=== PATIENT | male | born 1980 | race Caucasian/White ===

== ENCOUNTER 2018-04-19 04:48 | Emergency (ER) | payer BC ==
[2018-04-19] MEDS ORDERED: MEPERIDINE HCL 50 MG/ML AMP ONE (05:35)
[2018-04-19] MEDS ORDERED: ONDANSETRON 4 MG/2 ML VIAL ONE (05:35)
[2018-04-19] MEDS ORDERED: NA CHLORIDE 0.9% 2,000 ML ONE (05:36)
[2018-04-19 05:39] LABS: Absolute Lymphocytes (CBC) 0.3 K/uL (0.7-4.9); Absolute Monocytes 0.4 K/uL (0.1-1.3); Absolute Neutrophil 16.8 K/uL (1.8-8.0); Basophils % 0.1 % (0-1.3); Eosinophils % 0.1 % (0-4.4); Hematocrit 47.9 % (39.6-49.0); Lymphocytes % 1.8 % (15.3-44.8); MPV 8.1 fL (7.6-11.3); Monocytes % 2.4 % (3.3-12.3); RBC Red Blood Cell Count 5.54 M/uL (4.33-5.43)
[2018-04-19 06:07] LABS: ALT/SGPT 35 U/L (12-78); AST/SGOT 18 U/L (15-37); Albumin 4.6 g/dL (3.4-5.0); Alkaline Phosphatase 65 U/L (45-117); BUN Blood Urea Nitrogen 21 mg/dL (7-18); Bicarbonate 25 mmol/L (21-32); Bilirubin Direct 0.2 mg/dL (0-0.2); Bilirubin Total 0.9 mg/dL (0.2-1.0); Glucose Level 125 mg/dL (74-106); Lipase 182 U/L (73-393); Protein, Total 8.2 g/dL (6.4-8.2); Sodium Level 140 mmol/L (136-145)
[2018-04-19 06:13] LABS: Blood Morphology Comment NOT SEEN (NOT SEEN); Platelet Estimate ADEQ; Toxic Granulation 1+; Urine White Blood Cell Casts OK
--- NOTE | 2018-04-19 09:11 | RAD REPORT ---
EXAM DESCRIPTION: CT - Abdomen Pelvis W Contrast - 04/19/2018 9:03 am CLINICAL HISTORY: Abdominal pain, nausea and vomiting, history of ulcerative colitis and esophagitis COMPARISON: None. TECHNIQUE: Biphasic CT imaging of the abdomen and pelvis was performed following 100 ml non-ionic IV contrast. Oral contrast was given. All CT scans are performed using dose optimization technique as appropriate and may include automated exposure control or mA/KV adjustment according to patient size. Due to technical difficulties, timing of acquisition was not optimal. Exam is still of diagnostic in quality. FINDINGS: No suspicious findings in the lung bases. The liver, spleen, and pancreas show no suspicious findings. Liver is borderline fatty infiltrated. G allbladder and biliary tree show no suspicious findings. Gallstones can be occult. Symmetric renal function is seen with no hydronephrosis or suspicious renal mass. No pyelonephritis o r acute parenchymal process. No bladder abnormalities. No adrenal abnormalities. No dilated bowel loops or bowel wall thickening. Appendix is normal. A few small well under [address] mesenteric lymph nodes seen. No free air, free fluid or inflammatory stranding. No hernia, mass or bulky lymphadenopathy. No suspicious bony findings. IMPRESSION: Contrast enhanced CT abdomen and pelvis showing no significant or suspicious finding. No acute GI process is identifiable. Mild inflammatory changes of the colon limited to the mucosal jiménez rface can be occult on CT imaging.
--- NOTE | 2018-04-19 09:40 | EDPHYS ---
Physician Documentation [facility] Name: Daren Myers Age: 37 yrs Sex: Male : 1980 Arrival Date: 04/19/2018 Time: 04:54 Bed 14 Private MD: ED Physician Pankaj Conn HPI: 04/19 05:17 This 37 yrs old Male presents to ER via Ambulatory with complaints of pkl Vomiting/Diarrhea, Abdominal Pain, Back Pain. 05:17 The patient presents to the emergency department with vomiting, diarrhea. Onset: The pkl symptoms/episode began/occurred just prior to arrival, 8 hour(s) ago. H/O ulcerative colitis. Historical: - Allergies: 04:56 PENICILLINS; jb4 - Home Meds: 04:56 Simponi subcutaneous subcutaneous [Active]; budesonide oral oral [Active]; Vitamin D3 jb4 oral oral [Active]; Zinc Sulfate Oral [Active]; Probiotic oral oral [Active]; - PMHx: 04:56 ulcerative colitis; esophageal esophagitis; spinulosis; jb4 - PSHx: 04:56 coloscopy; endoscopy; right foot; jb4 - Immunization history:: Adult Immunizations unknown, Flu vaccine is not up to date. - Social history:: Smoking status: Patient/guardian denies using tobacco, Patient uses alcohol, on a daily basis. - Ebola Screening: : No symptoms or risks identified at this time. ROS: 05:17 Eyes: Negative for injury, pain, redness, and discharge, ENT: Negative for injury, pkl pain, and discharge, Neck: Negative for injury, pain, and swelling, Cardiovascular: Negative for chest pain, palpitations, and edema, Respiratory: Negative for shortness of breath, cough, wheezing, and pleuritic chest pain. 05:17 Abdomen/GI: Positive for abdominal pain, nausea, vomiting, and diarrhea, of the right upper quadrant, left upper quadrant, right lower quadrant and left lower quadrant. 05:17 Back: Negative for acute changes. 05:17 : Negative for urinary symptoms. 05:17 MS/extremity: Negative for acute changes. 05:17 Skin: Negative for rash. 05:17 Neuro: Negative for altered mental status. Exam: 05:17 Head/Face: Normocephalic, atraumatic. Eyes: Pupils equal round and reactive to light, pkl extra-ocular motions intact. Lids and lashes normal. Conjunctiva and sclera are non-icteric and not injected. Cornea within normal limits. Periorbital areas with no swelling, redness, or edema. ENT: Nares patent. No nasal discharge, no septal abnormalities noted. Tympanic membranes are normal and external auditory canals are clear. Oropharynx with no redness, swelling, or masses, exudates, or evidence of obstruction, uvula midline. Mucous membranes moist. Neck: Trachea midline, no thyromegaly or masses palpated, and no cervical lymphadenopathy. Supple, full range of motion without nuchal rigidity, or vertebral point tenderness. No Meningismus. Chest/axilla: Normal chest wall appearance and motion. Nontender with no deformity. No lesions are appreciated. Cardiovascular: Regular rate and rhythm with a normal S1 and S2. No gallops, murmurs, or rubs. Normal PMI, no JVD. No pulse deficits. Respiratory: Lungs have equal breath sounds bilaterally, clear to auscultation and percussion. No rales, rhonchi or wheezes noted. No increased work of breathing, no retractions or nasal flaring. 05:17 Abdomen/GI: Bowel sounds: active, Palpation: soft, mild abdominal tenderness, in all quadrants. 05:17 Back: Exam negative for acute changes. 05:17 : Exam negative for acute changes. 05:17 Musculoskeletal/extremity: Exam is negative for acute changes. 05:17 Skin: Exam negative for rash. 05:17 Neuro: Orientation: is normal, Mentation: is normal, Cranial nerves: grossly normal, Motor: is normal. Vital Signs: 04:56 BP 132 / 90; Pulse 116; Resp 16; Temp 98.4(O); Pulse Ox 97% on R/A; Weight 90.72 kg jb4 (R); Height 5 ft. 10 in. (177.80 cm); Pain 8/10; 06:00 BP 125 / 83; Pulse 86; Resp 16; Pulse Ox 100% on 2 lpm NC; jb4 07:00 BP 122 / 76; Pulse 96; Resp 17; Pulse Ox 100% on 2 lpm NC; Pain 0/10; rb1 08:00 BP 114 / 78; Pulse 75; Resp 16; Pulse Ox 100% on 2 lpm NC; rb1 09:00 rb1 09:15 BP 128 / 67; Pulse 84; Resp 17; Pulse Ox 100% on R/A; rb1 09:53 BP 120 / 70; Pulse 89; Resp 18; Pulse Ox 100% ; rb1 04:56 Body Mass Index 28.70 (90.72 kg, 177.80 cm) jb4 09:[address] rb1 MDM: 04:57 Patient medically screened. pkl 09:38 Differential diagnosis: Nonspecific abd pain, gastritis, viral gastroenteritis, rn gastroenteritis, colitis. Data reviewed: vital signs, nurses notes, lab test result(s), radiologic studies, CT scan, and as a result, I will discharge patient. Counseling: I had a detailed discussion with the patient and/or guardian regarding: the historical points, exam findings, and any diagnostic results supporting the discharge/admit diagnosis, lab results, radiology results, the need for outpatient follow up, to return to the emergency department if symptoms worsen or persist or if there are any questions or concerns that arise at home. Special discussion: Based on the patient's Hx, exam, and Dx evaluation, there is no indication for emergent surgery or inpatient Tx. It is understood by the patient/guardian that if the Sx's persist or worsen they need to return immediately for re-evaluation. I discussed with the patient/guardian in detail that at this point there is no indication for admission to the hospital. It is understood, however, that if the symptoms persist or worsen the patient needs to return immediately for re-evaluation. 04/19 05:16 Order name: Basic Metabolic Panel; Complete Time: 06:20 pkl 04/19 05:16 Order name: CBC with Diff; Complete Time: 06:20 pkl 04/19 05:16 Order name: Creatinine for Radiology; Complete Time: 06:20 pkl 04/19 05:16 Order name: Hepatic Function; Complete Time: 06:20 pkl 04/19 05:16 Order name: Lipase; Complete Time: 06:20 pkl 04/19 05:16 Order name: IV Saline Lock; Complete Time: 05:45 pkl 04/19 05:16 Order name: Labs collected and sent; Complete Time: 05:45 pkl 04/19 05:45 Order name: CBC Smear Scan; Complete Time: 06:20 EDMS 04/19 06:22 Order name: CT Abd/Pelvis - W/Contrast; Complete Time: 09:18 pkl Administered Medications: 05:28 Drug: Zofran 4 mg Route: IVP; Site: right antecubital; jb4 06:41 Follow up: Response: No adverse reaction; Nausea is decreased jb4 05:30 Drug: Demerol 50 mg Route: IVP; Site: right antecubital; jb4 06:41 Follow up: Response: No adverse reaction; Pain is decreased jb4 05:34 Drug: NS 0.9% 1000 ml Route: IV; Rate: 1000 ml; Site: right antecubital; jb4 06:42 Follow up: Response: No adverse reaction; IV Status: Completed infusion jb4 06:41 Drug: NS 0.9% 1000 ml Route: IV; Rate: 125 ml/hr; Site: right antecubital; jb4 09:40 Follow up: IV Status: Completed infusion; IV Intake: 375ml rb1 Disposition: 04/19/18 09:39 Discharged to Home. Impression: Vomiting, Diarrhea, unspecified, Colitis. - Condition is Stable. - Discharge Instructions: Diarrhea, Adult, Nausea and Vomiting, Adult. - Prescriptions for Zofran ODT 4 mg Oral tablet,disintegrating - place 1 tablet by TRANSLINGUAL route every 8 hours As needed; 20 tablet. Cipro 500 mg Oral Tablet - take 1 tablet by ORAL route every 12 hours for 10 days; 20 tablet. Flagyl 500 mg Oral Tablet - take 1 tablet by ORAL route every 8 hours for 10 days; 30 tablet. - Medication Reconciliation Form, Thank You Letter, Antibiotic Education, Prescription Opioid Use form. - Follow up: Private Physician; When: As needed; Reason: Recheck today's complaints, Re-evaluation by your physician. - Problem is new. - Symptoms have improved. Signatures: Dispatcher [employer] EDIA Alessio Figueroa MD MD pkl Pankaj Conn MD MD rn Kim Smith, RN RN rb1 Wood Lomeli RN RN jb4 Corrections: (The following items were deleted from the chart) 09:55 09:39 04/19/2018 09:39 Discharged to Home. Impression: Vomiting; Diarrhea, unspecified; rb1 Colitis. Condition is Stable. Forms are Medication Reconciliation Form, Thank You Letter, Antibiotic Education, Prescription Opioid Use. Follow up: Private Physician; When: As needed; Reason: Recheck today's complaints, Re-evaluation by your physician. Problem is new. Symptoms have improved. rn
--- NOTE | 2018-04-19 09:40 | ER ---
Nurse's Notes [facility] Name: Daren Myers Age: 37 yrs Sex: Male : 1980 Arrival Date: 04/19/2018 Time: 04:54 Bed 14 Private MD: Diagnosis: Vomiting;Diarrhea, unspecified;Colitis Presentation: 04/19 04:56 Presenting complaint: Patient states: Around 2100 last night I began vomiting and jb4 having diarrhea with abdominal pain. the pain has continued to get worse since then. I have not vomited since midnight. 04:56 Transition of care: patient was not received from another setting of care. Onset of jb4 symptoms was April 18, 2018. Risk Assessment: Do you want to hurt yourself or someone else? Patient reports no desire to harm self or others. Initial Sepsis Screen: Does the patient meet any 2 criteria? HR > 90 bpm. No. Patient's initial sepsis screen is negative. Does the patient have a suspected source of infection? No. Patient's initial sepsis screen is negative. Care prior to arrival: None. 04:56 Method Of Arrival: Ambulatory jb4 04:56 Acuity: BEN 3 jb4 Historical: - Allergies: 04:56 PENICILLINS; jb4 - Home Meds: 04:56 Simponi subcutaneous subcutaneous [Active]; budesonide oral oral [Active]; Vitamin D3 jb4 oral oral [Active]; Zinc Sulfate Oral [Active]; Probiotic oral oral [Active]; - PMHx: 04:56 ulcerative colitis; esophageal esophagitis; spinulosis; jb4 - PSHx: 04:56 coloscopy; endoscopy; right foot; jb4 - Immunization history:: Adult Immunizations unknown, Flu vaccine is not up to date. - Social history:: Smoking status: Patient/guardian denies using tobacco, Patient uses alcohol, on a daily basis. - Ebola Screening: : No symptoms or risks identified at this time. Screenin:56 Abuse screen: Denies threats or abuse. Nutritional screening: No deficits noted. jb4 Tuberculosis screening: No symptoms or risk factors identified. Fall Risk None identified. Assessment: 04:56 General: Appears in no apparent distress. uncomfortable, Behavior is calm, cooperative, jb4 appropriate for age. Pain: Complains of pain in abdomen Pain does not radiate. Pain currently is 8 out of 10 on a pain scale. Quality of pain is described as crampy, Pain began 1 day ago. Is continuous. Neuro: Level of Consciousness is awake, alert, obeys commands, Oriented to person, place, time, situation. Cardiovascular: Patient's skin is warm and dry. Respiratory: Airway is patent Respiratory effort is even, unlabored, Respiratory pattern is regular, symmetrical. GI: Abdomen is round non-distended, Bowel sounds present X 4 quads. Abd is soft X 4 quads Abdomen is tender to palpation X 4 quads. Reports lower abdominal pain, upper abdominal pain, diarrhea, nausea, vomiting. : No signs and/or symptoms were reported regarding the genitourinary system. EENT: No signs and/or symptoms were reported regarding the EENT system. Derm: Skin is intact, Skin is pink, warm \T\ dry. Musculoskeletal: Circulation, motion, and sensation intact. 05:42 Reassessment: Pt O2 sat dropped to 90% to 92% after Demerol administration. Placed on jb4 2L NC. 06:08 Reassessment: Patient appears in no apparent distress at this time. Patient and/or jb4 family updated on plan of care and expected duration. Pain level reassessed. Patient is alert, oriented x 3, equal unlabored respirations, skin warm/dry/pink. Patient states feeling better. 07:00 General: Appears in no apparent distress. comfortable, Behavior is calm, cooperative. rb1 Pain: Complains of pain in abdomen Pain currently is 2 out of 10 on a pain scale. Neuro: Level of Consciousness is awake, alert, obeys commands, Oriented to person, place, time, situation. Cardiovascular: Capillary refill < 3 seconds is brisk in bilateral fingers. Respiratory: Airway is patent Respiratory effort is even, unlabored, Respiratory pattern is regular, symmetrical. 07:32 Reassessment: Called CT and spoke to Vanessa to inform them that the pt finished his rb1 contrast at 0713. 08:00 Reassessment: Patient appears in no apparent distress at this time. No changes from rb1 previously documented assessment. 09:00 Reassessment: Pt. is in CT. rb1 09:15 Reassessment: Patient appears in no apparent distress at this time. Patient and/or rb1 family updated on plan of care and expected duration. Pain level reassessed. Patient is alert, oriented x 3, equal unlabored respirations, skin warm/dry/pink. Vital Signs: 04:56 BP 132 / 90; Pulse 116; Resp 16; Temp 98.4(O); Pulse Ox 97% on R/A; Weight 90.72 kg jb4 (R); Height 5 ft. 10 in. (177.80 cm); Pain 8/10; 06:00 BP 125 / 83; Pulse 86; Resp 16; Pulse Ox 100% on 2 lpm NC; jb4 07:00 BP 122 / 76; Pulse 96; Resp 17; Pulse Ox 100% on 2 lpm NC; Pain 0/10; rb1 08:00 BP 114 / 78; Pulse 75; Resp 16; Pulse Ox 100% on 2 lpm NC; rb1 09:00 rb1 09:15 BP 128 / 67; Pulse 84; Resp 17; Pulse Ox 100% on R/A; rb1 09:53 BP 120 / 70; Pulse 89; Resp 18; Pulse Ox 100% ; rb1 04:56 Body Mass Index 28.70 (90.72 kg, 177.80 cm) jb4 09:[address] rb1 ED Course: 04:54 Patient arrived in ED. es 04:56 Wood Lomeli, RN is Primary Nurse. jb4 04:56 Arm band placed on left wrist. jb4 04:56 Patient has correct armband on for positive identification. Placed in gown. Bed in low jb4 position. Call light in reach. Side rails up X 1. Pulse ox on. NIBP on. 04:57 Alessio Figueroa MD is Attending Physician. pkl 05:09 Triage completed. jb4 05:31 Inserted saline lock: 20 gauge in right antecubital area, using aseptic technique. oe Blood collected. 07:01 Attending Physician role handed off by Alessio Figueroa MD rn 07:01 Pankaj Conn MD is Attending Physician. rn 08:54 CT completed. Patient tolerated procedure well. Patient moved to CT via wheelchair. vr Patient moved back from CT. 09:04 CT Abd/Pelvis - W/Contrast In Process Unspecified. EDMS 09:55 No provider procedures requiring assistance completed. IV discontinued, intact, rb1 bleeding controlled, No redness/swelling at site. Pressure dressing applied. Administered Medications: 05:28 Drug: Zofran 4 mg Route: IVP; Site: right antecubital; jb4 06:41 Follow up: Response: No adverse reaction; Nausea is decreased jb4 05:30 Drug: Demerol 50 mg Route: IVP; Site: right antecubital; jb4 06:41 Follow up: Response: No adverse reaction; Pain is decreased jb4 05:34 Drug: NS 0.9% 1000 ml Route: IV; Rate: 1000 ml; Site: right antecubital; jb4 06:42 Follow up: Response: No adverse reaction; IV Status: Completed infusion jb4 06:41 Drug: NS 0.9% 1000 ml Route: IV; Rate: 125 ml/hr; Site: right antecubital; jb4 09:40 Follow up: IV Status: Completed infusion; IV Intake: 375ml rb1 Intake: 09:40 IV: 375ml; Total: 375ml. rb1 Outcome: 09:39 Discharge ordered by . rn 09:55 Discharged to home ambulatory. rb1 09:55 Condition: stable 09:55 Discharge instructions given to patient, Instructed on discharge instructions, follow up and referral plans. medication usage, Demonstrated understanding of instructions, follow-up care, medications, Prescriptions given X 3. 09:55 Patient left the ED. rb1 Signatures: Dispatcher [employer] Alessio Naqvi MD MD pkl Salyer, Edna es Nieto, Roman, MD MD rn Davis, Victoria vr Barber, Rebecca, RN RN rb1 Wood Lomeli RN RN jbNba Eddy
== END 2018-04-19 09:55 | disposition home or self-care (01) ==
LOC: ER 04:48
DX: K52.9 Noninfective gastroenteritis and colitis, unspecified (principal); R19.7 Diarrhea, unspecified; Z88.0 Allergy status to penicillin
CPT/HCPCS: 36415; 74177; 80048; 80076; 83690; 85025; 96361; 96374; 96375; 99284; J2175; J2405; J7030; Q9967